=== PATIENT | male | born 1965 | race Caucasian/White ===

== ENCOUNTER 2017-09-18 18:22 | Observation (INO) | payer OTHER ==
[2017-09-18] MEDS: SOD CHLORIDE 0.9% 1,000 ML IV ×2 (18:56→21:00)
[2017-09-18] MEDS: ONDANSETRON 4 MG INJ IV ×2 (18:56→19:43)
[2017-09-18 18:58] LABS: ADD MAN DIFF? NO
[2017-09-18 19:01] LABS: WHITE BLOOD COUNT 14.4 10^3/ul (4.8-10.8)
[2017-09-18 19:01] LABS: BASOPHIL # 0.1 10^3/ul (0.0-0.1); BASOPHILS % 0.5 % (0.0-2.0); EOSINOPHILS # 0.1 10^3/ul (0.0-0.5); EOSINOPHILS % 0.5 % (0.0-7.0); HEMATOCRIT 45.4 % (42.0-52.0); HEMOGLOBIN 16.1 g/dl (14.0-18.0); LYMPHOCYTES # 1.9 10^3/ul (0.8-2.9); LYMPHOCYTES % 13.2 % (15.0-51.0); MEAN CORPUSCULAR HEMOGLOBIN 30.4 pg (29.0-33.0); MEAN CORPUSCULAR HGB CONC 35.5 g/dl (32.0-37.0); MEAN CORPUSCULAR VOLUME 85.7 fl (82.0-101.0); MEAN PLATELET VOLUME 10.6 fl (7.4-10.4); MONOCYTE # 0.8 10^3/ul (0.3-0.9); MONOCYTES % 5.3 % (0.0-11.0); NEUTROPHIL # 11.5 10^3/ul (1.6-7.5); NEUTROPHILS % 79.6 % (39.0-77.0); PLATELET COUNT 234 10^3/UL (140-415)
[2017-09-18 19:18] LABS: ALANINE AMINOTRANSFERASE 27 IU/L (13-69); ALBUMIN 4.4 g/dl (3.3-4.9); ALBUMIN/GLOBULIN RATIO 1.29; ALKALINE PHOSPHATASE 81 IU/L (42-121); ANION GAP 19 (8-16); ASPARTATE AMINO TRANSFERASE 16 IU/L (15-46); BILIRUBIN,INDIRECT 0.7 mg/dl (0-1.1); BILIRUBIN,TOTAL 0.7 mg/dl (0.2-1.3); BLOOD UREA NITROGEN 18 mg/dl (7-20); CALCIUM 9.1 mg/dl (8.4-10.2); CARBON DIOXIDE 21 mmol/L (21-31); CHLORIDE 107 mmol/L (97-110); CREATININE 0.85 mg/dl (0.61-1.24); GLUCOSE 151 mg/dl (70-220); LIPASE 138 U/L (23-300); POTASSIUM 3.9 mmol/L (3.5-5.1); SODIUM 143 mmol/L (135-144); TOTAL PROTEIN 7.8 g/dl (6.1-8.1)
[2017-09-18 19:31] LABS: TROPONIN-I < 0.012 ng/ml (0.00-0.12)
[2017-09-18] MEDS: METOCLOPRAMIDE 10 MG INJ IV (19:43)
[2017-09-18 22:07] LABS: URINE BLOOD (Dip) POC Negative (NEGATIVE); URINE GLUCOSE (Dip) POC Negative (NEGATIVE); URINE KETONES (Dip) POC 1+ (NEGATIVE); URINE LEUKOCYTE EST (Dip) POC Negative (NEGATIVE); URINE NITRITE (Dip) POC Negative (NEGATIVE); URINE TOTAL PROTEIN POC Negative (NEGATIVE)
[2017-09-18 22:24] LABS: ADD UMIC NO; UR ASCORBIC ACID NEGATIVE (NEGATIVE); UR BILIRUBIN (Dip) NEGATIVE (NEGATIVE); UR BLOOD (Dip) NEGATIVE (NEGATIVE); UR CLARITY CLEAR (CLEAR); UR COLOR YELLOW (YELLOW); UR GLUCOSE (Dip) NEGATIVE (NEGATIVE); UR KETONES (Dip) 1+ mg/dL (NEGATIVE); UR LEUKOCYTE ESTERASE (Dip) NEGATIVE Leu/ul (NEGATIVE); UR NITRITE (Dip) NEGATIVE (NEGATIVE); UR SPECIFIC GRAVITY (Dip) 1.019 (1.003-1.030); UR TOTAL PROTEIN (Dip) NEGATIVE (NEGATIVE); UR UROBILINOGEN (Dip) NEGATIVE (NEGATIVE)
[2017-09-18] MEDS: DIPHENHYDRAMINE 50 MG INJ IV (23:31)
[2017-09-19] MEDS ORDERED: NITROGLYCERIN (SL) 0.4 MG TAB SL (00:30)
[2017-09-19] MEDS ORDERED: ACETAMINOPHEN 325 MG TAB PO ×2 (00:30→03:00)
[2017-09-19] MEDS: AL HYDROX/MG HYDROX/SIMETH 30 ML CUP PO ×5 (00:53→20:57)
[2017-09-19] MEDS: METOPROLOL 25 MG TAB PO ×3 (00:54→20:58)
[2017-09-19] MEDS: ASPIRIN 81 MG TAB PO (00:55)
[2017-09-19 01:45] LABS: CREATINE KINASE 66 IU/L (23-200)
[2017-09-19 01:58] LABS: CK INDEX 1.6
[2017-09-19 01:59] LABS: CK-MB 1.08 ng/ml (0.0-2.4); TROPONIN-I < 0.012 ng/ml (0.00-0.12)
[2017-09-19] MEDS: KETOROLAC 30 MG INJ IV (02:54)
[2017-09-19] MEDS ORDERED: LORAZEPAM 1 MG TAB PO (03:00)
[2017-09-19] MEDS ORDERED: SENNA/DOCUSATE NA (8.6MG/50MG) TAB PO (03:00)
[2017-09-19] MEDS ORDERED: ZOLPIDEM 5 MG TAB PO (03:00)
[2017-09-19] MEDS: hydrALAzine 20 MG INJ IV (03:07)
[2017-09-19] MEDS: ONDANSETRON 4 MG INJ IV ×3 (04:03→20:57)
[2017-09-19] MEDS: SOD CHLORIDE 0.45% 1,000 ML IV (04:04)
[2017-09-19] MEDS: METOCLOPRAMIDE 10 MG INJ IV ×2 (05:10→12:00)
[2017-09-19] MEDS: LEVOFLOXACIN 750 MG TABLET PO (06:10)
[2017-09-19] MEDS: PANTOPRAZOLE (EC) 40 MG TAB PO (06:12)
[2017-09-19] MEDS: HYDROCODONE/APAP (10/325) TAB PO ×2 (06:12→13:03)
[2017-09-19] MEDS: LORAZEPAM 1 MG TAB PO (07:21)
[2017-09-19 07:42] LABS: CREATINE KINASE 77 IU/L (23-200)
[2017-09-19 07:56] LABS: CK INDEX 2.2
[2017-09-19 08:04] LABS: TROPONIN-I < 0.012 ng/ml (0.00-0.12)
[2017-09-19] MEDS: ASPIRIN (EC) 325 MG TAB PO (08:58)
[2017-09-19] MEDS: LORATADINE 10 MG TAB PO (08:58)
[2017-09-19] MEDS: CALCIUM CARBONATE 500 MG CHEW TAB PO ×4 (08:58→20:57)
[2017-09-19] MEDS: AMLODIPINE 5 MG TAB PO (08:59)
[2017-09-19] MEDS: LISINOPRIL 20 MG TAB PO (08:59)
[2017-09-19] MEDS ORDERED: hydrALAzine 20 MG INJ IV (09:00)
[2017-09-19] MEDS ORDERED: ASPIRIN 81 MG TAB PO (09:00)
[2017-09-19 10:17] LABS: AMPHETAMINE/METHAMPHETAMINE Negative (NEGATIVE); BARBITURATES Negative (NEGATIVE); BENZODIAZEPINES Negative (NEGATIVE); CANNABINOIDS Positive (NEGATIVE); COCAINE Negative (NEGATIVE); OPIATES Negative (NEGATIVE)
[2017-09-19] MEDS: REGADENOSON 0.4 MG/5 ML SYG (12:06)
[2017-09-19] MEDS: MECLIZINE 25 MG TAB PO ×2 (13:37→20:58)
[2017-09-19 14:27] LABS: ADD MAN DIFF? NO
[2017-09-19 14:30] LABS: BASOPHILS % 0.3 % (0.0-2.0); EOSINOPHILS % 0.1 % (0.0-7.0); HEMATOCRIT 44.9 % (42.0-52.0); HEMOGLOBIN 15.5 g/dl (14.0-18.0); LYMPHOCYTES # 1.2 10^3/ul (0.8-2.9); LYMPHOCYTES % 8.1 % (15.0-51.0); MEAN CORPUSCULAR HEMOGLOBIN 29.7 pg (29.0-33.0); MEAN CORPUSCULAR HGB CONC 34.5 g/dl (32.0-37.0); MEAN PLATELET VOLUME 10.6 fl (7.4-10.4); MONOCYTE # 0.8 10^3/ul (0.3-0.9); MONOCYTES % 5.4 % (0.0-11.0); NEUTROPHIL # 12.5 10^3/ul (1.6-7.5); NEUTROPHILS % 85.4 % (39.0-77.0); PLATELET COUNT 227 10^3/UL (140-415); RED BLOOD COUNT 5.22 10^6/ul (4.70-6.10); RED CELL DISTRIBUTION WIDTH 12.1 % (11.5-14.5)
[2017-09-19 14:30] LABS: WHITE BLOOD COUNT 14.6 10^3/ul (4.8-10.8)
[2017-09-19] MEDS: morphine 2 MG INJ IV ×2 (16:13→20:49)
[2017-09-19 18:43] LABS: TROPONIN-I < 0.012 ng/ml (0.00-0.12)
[2017-09-19] MEDS: ATORVASTATIN 20 MG TAB PO (20:58)
[2017-09-20] MEDS: PANTOPRAZOLE (EC) 40 MG TAB PO (05:15)
[2017-09-20] MEDS: LEVOFLOXACIN 750 MG TABLET PO (05:16)
[2017-09-20] MEDS: HYDROCODONE/APAP (10/325) TAB PO (05:16)
[2017-09-20 06:52] LABS: ADD MAN DIFF? NO
[2017-09-20 07:00] LABS: BASOPHILS % 0.3 % (0.0-2.0); EOSINOPHILS # 0.1 10^3/ul (0.0-0.5); EOSINOPHILS % 0.4 % (0.0-7.0); HEMATOCRIT 44.5 % (42.0-52.0); HEMOGLOBIN 15.2 g/dl (14.0-18.0); LYMPHOCYTES # 2.4 10^3/ul (0.8-2.9); LYMPHOCYTES % 20.3 % (15.0-51.0); MEAN CORPUSCULAR HEMOGLOBIN 29.7 pg (29.0-33.0); MEAN CORPUSCULAR HGB CONC 34.2 g/dl (32.0-37.0); MEAN CORPUSCULAR VOLUME 86.9 fl (82.0-101.0); MEAN PLATELET VOLUME 10.5 fl (7.4-10.4); MONOCYTE # 1.1 10^3/ul (0.3-0.9); MONOCYTES % 9.4 % (0.0-11.0); NEUTROPHIL # 8.3 10^3/ul (1.6-7.5); PLATELET COUNT 222 10^3/UL (140-415); RED BLOOD COUNT 5.12 10^6/ul (4.70-6.10); RED CELL DISTRIBUTION WIDTH 12.4 % (11.5-14.5)
[2017-09-20 07:17] LABS: ALANINE AMINOTRANSFERASE 24 IU/L (13-69); ALBUMIN 3.4 g/dl (3.3-4.9); ALKALINE PHOSPHATASE 58 IU/L (42-121); ANION GAP 11 (8-16); ASPARTATE AMINO TRANSFERASE 17 IU/L (15-46); BILIRUBIN,INDIRECT 0.8 mg/dl (0-1.1); BILIRUBIN,TOTAL 0.8 mg/dl (0.2-1.3); BLOOD UREA NITROGEN 14 mg/dl (7-20); CALCIUM 8.8 mg/dl (8.4-10.2); CARBON DIOXIDE 28 mmol/L (21-31); CHLORIDE 109 mmol/L (97-110); CHOL/HDL RATIO 5.3 RATIO; CHOLESTEROL 161 mg/dl (100-200); CREATININE 0.92 mg/dl (0.61-1.24); GLUCOSE 118 mg/dl (70-220); HDL CHOLESTEROL 30 mg/dl (28-71); LDL CHOLESTEROL,CALCULATED 100 mg/dl; POTASSIUM 3.8 mmol/L (3.5-5.1); SODIUM 144 mmol/L (135-144); TOTAL PROTEIN 6.4 g/dl (6.1-8.1); TRIGLYCERIDES 156 mg/dl (0-149)
[2017-09-20] MEDS: AL HYDROX/MG HYDROX/SIMETH 30 ML CUP PO ×2 (08:50→13:01)
[2017-09-20] MEDS: LORATADINE 10 MG TAB PO (08:51)
[2017-09-20] MEDS: METOPROLOL 25 MG TAB PO (08:51)
[2017-09-20] MEDS: MECLIZINE 25 MG TAB PO ×2 (08:51→13:01)
[2017-09-20] MEDS: AMLODIPINE 5 MG TAB PO (08:51)
[2017-09-20] MEDS: LISINOPRIL 20 MG TAB PO (08:51)
[2017-09-20] MEDS: ASPIRIN (EC) 325 MG TAB PO (08:51)
[2017-09-20] MEDS: CALCIUM CARBONATE 500 MG CHEW TAB PO ×2 (09:00→13:01)
== END 2017-09-20 15:20 | disposition home or self-care (01) ==
LOC: MS4 09-19 00:13 → E/R 18:22
DX: R42 Dizziness and giddiness (principal); I16.0 Hypertensive urgency; I10 Essential (primary) hypertension; R07.89 Other chest pain; R51 Headache; E78.00 Pure hypercholesterolemia, unspecified; M54.9 Dorsalgia, unspecified; G89.29 Other chronic pain; D72.829 Elevated white blood cell count, unspecified; F41.9 Anxiety disorder, unspecified; Z91.14 Patient's other noncompliance with medication regimen; Z82.49 Family history of ischemic heart disease and other diseases of the circulatory system
CPT/HCPCS: 36415; 70450; 70551; 71045; 78452; 80048; 80053; 80061; 80076; 80307; 81003; 82550; 82553; 82962; 83690; 84484; 85025; 93005; 93017; 93306; 93880; 96374; 96375; 96376; 99285-25; G0378

== ENCOUNTER 2018-02-23 02:23 | Emergency (ER) | payer OTHER ==
[2018-02-23] MEDS ORDERED: KETOROLAC 60 MG INJ (02:48)
[2018-02-23] MEDS: KETOROLAC 60 MG INJ IM (02:52)
== END 2018-02-23 05:18 | disposition home or self-care (01) ==
LOC: E/R 02:23
DX: S76.012A Strain of muscle, fascia and tendon of left hip, initial encounter (principal); S20.222A Contusion of left back wall of thorax, initial encounter; I10 Essential (primary) hypertension; W11.XXXA Fall on and from ladder, initial encounter; Y92.9 Unspecified place or not applicable; Z79.82 Long term (current) use of aspirin
CPT/HCPCS: 72100; 73510; 96372; 99284-25

== ENCOUNTER 2018-03-04 14:34 | Emergency (ER) | payer OTHER ==
[2018-03-04] MEDS: ONDANSETRON 4 MG INJ IV (15:51)
[2018-03-04] MEDS: morphine 4 MG/ML VIAL IV (15:51)
[2018-03-04] MEDS: KETOROLAC 15 MG INJ IV (15:51)
[2018-03-04] MEDS: SOD CHLORIDE 0.9% 1,000 ML IV (15:51)
[2018-03-04 15:53] LABS: ADD MAN DIFF? NO
[2018-03-04 15:57] LABS: ABNORMAL IP MESSAGE 1; BASOPHILS % 0.2 % (0.0-2.0); HEMATOCRIT 47.4 % (42.0-52.0); HEMOGLOBIN 16.5 g/dl (14.0-18.0); LYMPHOCYTES # 0.6 10^3/ul (0.8-2.9); LYMPHOCYTES % 4.6 % (15.0-51.0); MEAN CORPUSCULAR HGB CONC 34.8 g/dl (32.0-37.0); MEAN CORPUSCULAR VOLUME 86.2 fl (82.0-101.0); MEAN PLATELET VOLUME 10.7 fl (7.4-10.4); MONOCYTE # 0.3 10^3/ul (0.3-0.9); MONOCYTES % 2.1 % (0.0-11.0); NEUTROPHIL # 11.7 10^3/ul (1.6-7.5); NEUTROPHILS % 92.8 % (39.0-77.0); PLATELET COUNT 272 10^3/UL (140-415); POSITIVE DIFF @See below; RED CELL DISTRIBUTION WIDTH 11.9 % (11.5-14.5)
[2018-03-04 15:57] LABS: WHITE BLOOD COUNT 12.6 10^3/ul (4.8-10.8)
[2018-03-04 16:13] LABS: ANION GAP 14 (8-16); BLOOD UREA NITROGEN 16 mg/dl (7-20); CALCIUM 9.6 mg/dl (8.4-10.2); CARBON DIOXIDE 23 mmol/L (21-31); CHLORIDE 109 mmol/L (97-110); GLUCOSE 166 mg/dl (70-220); POTASSIUM 4.2 mmol/L (3.5-5.1); SODIUM 142 mmol/L (135-144)
== END 2018-03-04 17:00 | disposition home or self-care (01) ==
LOC: E/R 14:34
DX: N13.2 Hydronephrosis with renal and ureteral calculous obstruction (principal); N23 Unspecified renal colic; I10 Essential (primary) hypertension; Z79.82 Long term (current) use of aspirin
CPT/HCPCS: 36415; 76775; 80048; 85025; 96374; 96375; 99285-25